=== PATIENT | female | born 1970 | race Caucasian/White ===

== ENCOUNTER 2016-10-06 12:54 | Emergency (ER) | payer MEDICAID ==
--- NOTE | ~2016-10-06 | ER ---
PATIENT'S NAME: CORINE JARA [facility] AGE: 46 Y [address] ROOM: [place] [address] LOCATION: [facility] ADMIT DATE: 10/06/2016 ER/Outpatient Report DISCHARGE DATE: 10/06/2016 FAMILY PHYSICIAN: Asad Prasad MD ATTENDING PHYSICIAN: Fredis Rojas Time of Arrival: 1254 hours. Time of Evaluation: 1306 hours. CHIEF COMPLAINT: Left thigh pain, possible blood clot. HISTORY OF PRESENT ILLNESS: This is a 46-year-old female, who presents to the ER, who states she has noticed some left upper thigh pain for approximately the last 18 hours. She states that the pain is right underneath her left buttock cheek and into her anterior thigh. She states that it feels like she has a tight band around the top of her thigh. She states that she has been exercising, so she does not know if she maybe injured her leg during exercise, but she is worried about blood clot. She states she had an episode of chest pain about a week ago when she was at rest. She states she has a history of anxiety and PTSD, and so she was not for sure if her chest pain was associated with that. She states that pain lasted approximately 15 minutes and went away on its own. She states that the pain did not radiate anywhere, but she did describe it as a pressure- type feeling. She states she has not had any current chest pain since then. She has not had any recent illnesses. No fever or chills. No cough. She states she does have a slight headache. The patient also states that she has been moving furniture lately as well and maybe that could be the source of her leg pain. ALLERGIES: NO KNOWN ALLERGIES. MEDICATIONS: Please see medication list nurse's notes. PAST MEDICAL HISTORY: History of ETOH abuse 6 years ago, PTSD, depression, anxiety, hypertension, constipation, and fatigue. PAST SURGERIES: None. SOCIAL HISTORY: She smokes half pack a day. Denies any drug or alcohol use. PATIENT'S NAME: CORINE JARA [facility] AGE: 46 Y [address] ROOM: [place] [address] LOCATION: [facility] ADMIT DATE: 10/06/2016 ER/Outpatient Report DISCHARGE DATE: 10/06/2016 FAMILY PHYSICIAN: Asad Prasad MD ATTENDING PHYSICIAN: Fredis Rojas REVIEW OF SYSTEMS: A 10-point review of systems was completed and was negative with the exception of those discussed in the HPI. PHYSICAL EXAMINATION: VITAL SIGNS: Height 5 feet and 6 inches stated, weight 76.6 kg taken, blood pressure is 144/87, pulse 65, respirations 17, temperature 98.8 degrees tympanically, and saturations 95% on room air. [place] Coma score is 15. GENERAL: Alert, calm, well-developed female, in no acute distress. HEENT: Head: Normocephalic. Eyes: Pupils are equal and reactive to light. Ears: TMs display good light reflexes bilaterally. Auditory canals clear. Nose: Turbinates pink with no drainage. Throat: No exudates or erythema. Does display moist mucous membranes. LUNGS: Clear to auscultation bilaterally. No wheeze or crackles. Normal respiratory effort. HEART: Regular rate and rhythm. No lifts, thrills, or murmurs. EXTREMITIES: No clubbing or cyanosis. Cannot elicit any pain with palpation over the left upper leg. There is no discoloration, no erythema or rash noted to the leg. She does have good and full range of motion of all of her extremities. LABORATORY DATA: CBC: White count is 5.3, hemoglobin is 13.0, platelets 266, ANC is 2.1. Sedimentation rate is 7, CRP is 0.29, potassium 3.5, chloride 112, otherwise unremarkable. CPK is 70. CK-MB is 1.0. Troponin I is less than 0.040. EKG shows normal sinus rhythm. Chest x-ray was negative for any infiltrate. Ultrasound, venous Doppler was done of the left lower extremity, negative for DVT. IMPRESSION: 1. Left lower leg pain. 2. A brief episode of chest pain 1 week ago. ASSESSMENT AND PLAN: We did monitor the patient here for quite some time. She rested comfortably her entire stay. The patient will be dismissed home. She needs to continue to monitor her symptoms. She may take Tylenol or ibuprofen as needed and follow up with her primary care physician for followup care. The patient understands and agrees with care. PATIENT'S NAME: CORINE JARA [facility] AGE: 46 Y [address] ROOM: [place] [address] LOCATION: [facility] ADMIT DATE: 10/06/2016 ER/Outpatient Report DISCHARGE DATE: 10/06/2016 FAMILY PHYSICIAN: Asad Prasad MD ATTENDING PHYSICIAN: Fredis Rojas PA-C FOR MD SIDDHARTHA PATJ/ivonel /[id number] d: 10/06/161799 t: 10/23/16 0802, OUTPATIENT REPORT
--- NOTE | ~2016-10-06 | ENPV ---
Vascular Lower Extremities DVT Study Procedure Demographics Patient Name CORINE JARA Date of Study 10/06/2016 Patient Number [id number] Gender Female Date of 1970 Age 46 Visit Number [id number] Height Accession Number [id number] Weight Room Number BSA BMI Referring Charly Brown MD Physician Physician Physician Ordering Physician Planning Coordinator Front End Web Developer Berta Aguirre [facility] Conclusions Summary Left lower extremity negative for DVT Opposing comparison vessel negative for DVT Procedure Type of Study: Veins:Lower Extremities DVT Study, Lower Extremity Left. Appropriate Use Criteria:7 Patient Status:Routine. Study Location:Inpatient Portable. Technical Quality:Adequate visualization. Velocities are measured in cm/s ; Diameters are measured in cm Right Lower Extremities DVT Study Measurements Right 2D and Doppler Measurements + + + + +------+------+ + !Location !Visualized!Compressibility!Thrombosis!Signal!Reflux!Reflux ! ! ! ! ! ! ! !(sec) ! + + + + +------+------+ + !Common !Yes !Yes !None ! ! ! ! !Femoral ! ! ! ! ! ! ! + + + + +------+------+ + Left Lower Extremities DVT Study Measurements Left 2D and Doppler Measurements + + + + +------+------+ + !Location !Visualized!Compressibility!Thrombosis!Signal!Reflux!Reflux ! ! ! ! ! ! ! !(sec) ! + + + + +------+------+ + !GSV Thigh !Yes !Yes !None !Phasic!No ! ! + + + + +------+------+ + !Common !Yes !Yes !None !Phasic!No ! ! !Femoral ! ! ! ! ! ! ! + + + + +------+------+ + !Prox !Yes !Yes !None !Phasic!No ! ! !Femoral ! ! ! ! ! ! ! + + + + +------+------+ + !Mid Femoral!Yes !Yes !None !Phasic!No ! ! + + + + +------+------+ + !Dist !Yes !Yes !None !Phasic!No ! ! !Femoral ! ! ! ! ! ! ! + + + + +------+------+ + !Popliteal !Yes !Yes !None !Phasic!No ! ! + + + + +------+------+ + !Gastroc !Yes !Yes !None !Phasic!No ! ! + + + + +------+------+ + !PTV !Yes !Yes !None !Phasic!No ! ! + + + + +------+------+ + !Peroneal !Yes !Yes !None !Phasic!No ! ! + + + + +------+------+ + Impressions Right Impression Opposing comparison vessel negative for DVT Left Impression Left lower extremity negative for DVT Signature dtt: KEVIN MARTINS dttristin: 10/06/16 1410 Physician Self Edit
[2016-10-06 14:17] LABS: BASOPHIL % 0.7 %; EOSINOPHIL # 0.3 K/uL (0.0-0.5); EOSINOPHIL % 4.7 %; IMMATURE GRANULOCYTE % 0.2 %; LYMPHOCYTE # 2.5 K/uL (0.8-4.0); LYMPHOCYTE % 45.9 %; MCH 31.2 pg (27.0-34.0); MCHC 34.2 gm/dL (32.0-36.5); MCV 91.1 fl (83.0-98.0); MONOCYTE # 0.5 K/uL (0.0-1.0); MONOCYTE % 9.4 %; MPV 8.9 fl (9.4-12.4); NEUTROPHIL # (ANC) 2.1 K/uL (1.8-7.8); NEUTROPHIL % 39.1 %; NRBC % 0 /100WBC (0-0.00); PLATELET COUNT 266 K/uL (150-450); RBC 4.17 M/uL (3.50-5.50); RDW-CV 12.4 % (11.9-14.6); WBC 5.3 K/uL (4.0-11.0)
[2016-10-06 14:35] LABS: ALBUMIN 3.5 gm/dL (3.5-5.0); ALK PHOS 51 IU/L (33-138); ALT 18 IU/L (12-78); ANION GAP 11.5 (10.0-19.0); AST 13 IU/L (10-40); BLOOD UREA NITROGEN 13 mg/dL (6-24); CALCIUM 8.6 mg/dL (8.5-10.5); CHLORIDE 112 mMol/L (96-110); CO2 24 mMol/L (22-32); CPK 70 IU/L (21-215); CREATININE 0.9 mg/dL (0.5-1.1); ESTIMATED GFR (MDRD EQUATION) > 60; POTASSIUM 3.5 mMol/L (3.7-5.1); SODIUM 144 mMol/L (135-145); TOTAL BILIRUBIN 0.3 mg/dL (0.0-1.5); TOTAL PROTEIN 6.5 g/dL (6.0-8.4)
== END 2016-10-06 14:55 | disposition disaster alternative care site (69) ==
LOC: GMED 12:54
PROVIDERS: Physician Assistant Medical
DX: M79.662 Pain in left lower leg (principal); R07.9 Chest pain, unspecified; F32.9 Major depressive disorder, single episode, unspecified; F41.9 Anxiety disorder, unspecified; I10 Essential (primary) hypertension; Z79.899 Other long term (current) drug therapy